=== PATIENT | male | born 1970 | race Caucasian/White ===

== ENCOUNTER 2018-05-05 09:20 | Emergency (ER) | payer BC ==
[~2018-05-05] VITALS: Ht 188 cm; Wt 125.7 kg
[2018-05-05] MEDS ORDERED: MOTRIN800 MG PO (12:39)
[2018-05-05 13:20] VITALS: BP 138/78
== END 2018-05-05 13:31 | disposition home or self-care (01) ==
LOC: EME 09:20
DX: M25.561 Pain in right knee (principal); M25.461 Effusion, right knee; M23.91 Unspecified internal derangement of right knee; F17.200 Nicotine dependence, unspecified, uncomplicated
CPT/HCPCS: 73564; 93971; 99281; 99284; J1885